=== PATIENT | male | born 1995 | race Caucasian/White ===

== ENCOUNTER 2023-09-03 08:06 | Emergency (ER) | payer OTHER, SELFPAY ==
[2023-09-03 08:11] VITALS: BP 123/69; PULSE 78; RESP 18; TEMP 36.1; O2SAT 98
--- NOTE | 2023-09-03 08:27 | ED.GENADULT ---
HPI - General Adult General Chief complaint: Dental/Oral Stated complaint: Toothache/Headache Time Seen by Provider: 09/03/23 08:10 Source: patient Mode of arrival: ambulatory Limitations: no limitations History of Present Illness HPI narrative: Patient presents for evaluation of left lower dental pain for last 3 weeks. Pain is constant, rated between 5-8/10 in severity. He describes the pain as throbbing. He has a headache which he attributes to his pain not being well controlled. No fever, chills, nausea or vomiting. He does not smoke. He has tried ibuprofen and tylenol without considerable improvement in his symptoms thereafter. Related Data Home Medications Medication Instructions Recorded Confirmed atenolol 50 mg tablet 50 mg PO DAILY 09/03/23 09/03/23 bupropion HCl 300 mg 24 hr tablet, 50 mg PO DAILY 09/03/23 09/03/23 extended release doxycycline hyclate 100 mg capsule 100 mg PO DAILY 09/03/23 09/03/23 omeprazole 40 mg capsule,delayed 40 mg PO DAILY 09/03/23 09/03/23 release ropinirole 1 mg tablet 1 mg PO DAILY 09/03/23 09/03/23 topiramate 50 mg tablet 50 mg PO DAILY 09/03/23 09/03/23 Allergies Allergy/AdvReac Type Severity Reaction Status Date / Time Sulfa (Sulfonamide Allergy Unknown Verified 09/03/23 08:23 Antibiotics) Review of Systems Review of Systems: CONSTITUTIONAL: Denies fever, chills, or sweats. EYES: Denies visual changes, redness, or discharge. ENT: Reports left lower dental pain. Denies rhinorrhea, congestion, sore throat, or otalgia. CARDIOVASCULAR: Denies chest pain, palpitations, or edema. RESPIRATORY: Denies cough or dyspnea. GASTROINTESTINAL: Denies abdominal pain, nausea, vomiting, or diarrhea. GENITOURINARY: Denies dysuria or hematuria. SKIN: Denies rash or itching. MUSCULOSKELETAL: Denies back pain, joint pain, or myalgia. NEUROLOGIC: Reports headache. Denies numbness, dizziness, or weakness. PSYCHIATRIC: Denies anxiety or depression. [facility], [facility] Past Medical History Medical History No pertinent past medical history Surgical History Surgical History No pertinent past surgical history Family History Family History Mother Family history non-contributory Social History Social History Smoking status: Never smoker Substance use: never Additional living arrangements comments: lives with girlfriend Gender identity (if verbalized by the patient): Male Sexual Orientation (if Verbalized by the Patient): Straight or Heterosexual Spiritual care concerns: No Exam Narrative: GENERAL: Well-appearing, well-nourished, and in no acute distress. HEAD: Normocephalic, atraumatic. EYES: PERRLA and EOMI. ENT: Nares clear, no rhinorrhea or epistaxis. Mucous membranes moist. Oropharynx without tonsillar hypertrophy exudate or other lesions. Tooth #18 is fractured. There is no visible or palpable abscess. Bilateral TMs pearly wolf nonbulging NECK: Supple. No adenopathy or masses. No carotid bruits or JVD CHEST: Clear to auscultation. No respiratory distress. No wheezes rales or rhonchi HEART: Regular rate and rhythm. No murmur heard. Normal peripheral pulses. ABDOMEN: Soft, nontender, nondistended, normal active bowel sounds. EXTREMITIES: Normal range of motion. No edema. SKIN: Warm, dry, no rash. NEURO: No focal deficits. Alert and oriented x3. PSYCH: Normal mood and affect. Course Course Emergency Course: This is a 28-year-old male who presented for evaluation of dental pain. He has a dental fracture on exam. Will discharge with penicillin and tramadol. Follow-up with dentist. Go to the ER for worsening symptoms. Patient in agreement with plan of care. Level of Care: Express Care Visit Vital Signs Vital signs:
== END 2023-09-03 08:32 | disposition home or self-care (01) ==
PROVIDERS: Emergency Provider Nurse Practitioner
DX: K08.89 Other specified disorders of teeth and supporting structures (principal); S02.5XXA Fracture of tooth (traumatic), initial encounter for closed fracture; X58.XXXA Exposure to other specified factors, initial encounter
CPT/HCPCS: 99203; G0463

== ENCOUNTER 2024-05-26 14:47 | Emergency (ER) | payer OTHER, SELFPAY ==
--- OUTSIDE RECORDS SUMMARY | 2024-05-26 14:49 | XMS_ITS | Encounter Summary ---
Author Organization [facility] Address [address] [place] [address] Phone Care Team Providers Care Service Trainer Name Role Phone Soco Benitez PAC Primary Care Pro vider Ashley Watson APRN, CONSULTANT Unavailable [phone] Encounter Details Date Type Department Care Team (Late st Contact Info) Description 07/17/2023 Lab Requisition [facility] [address] [place] [phone] Karen Bowers APRN, CONSULTANT [address] [place] [address] Encounter for pre-employment examination Social History Tobacco Use Types Packs/Day Years Used Date Smoking Tobacco: Never Smokeless Tobacco: Never Alcohol Use Standard Drinks/Week Comments Never 0 (1 standard drink = 0.6 oz pur e alcohol) Sex and Gender Information Value Date Recorded Sex Assigned at Not on file Legal Sex Male 3:15 PM CDT Gender Identity Not on file Sexual Orientation Not on file documented as of this encounter Plan of Treatment Upcoming Encounters Date Type Department Care Team (Latest Contact Info) Description 06/04/2024 4:30 PM CDT Telemedicine [facility] Medical [facility] - Pulmonology & Sleep Medicine [facility] [address] [place] [phone] Ashley Watson APRN, CONSULTANT #[address] [address] 07/24/2024 2:00 PM CDT [facility] [address] [facility] [address] [place] [address] Leeroy Gonzalez PSYD [place] Discharge Disposition: Discharged to home or Selfcare 09/03/2024 1:00 PM CDT [facility] [address] [facility] [place] [address] Leeroy Gonzalez PSYD [place] Discharge Disposition: Discharged to home or Selfcare 09/24/2024 2:00 PM CDT [facility] [address] [facility] [place] [address] Leeroy Gonzalez PSYD [place] Discharge Disposition: Discharged to home or Selfcare documented as of this encounter Procedures Procedure Name Priority Date/Time Associated Diagnosis Comments QUANTIFERON-TB GOLD PLUS Routine 07/17/2023 10:00 AM CDT Encounter for pre-employment examination MMRV PANEL Routine 07/17/2023 10:00 AM CDT Encounter for pre-employment examination MUMPS IGG Routine 07/17/2023 10:00 AM CDT Encounter for pre-employment examination HERPES ZOSTER (VARICELLA) IGG Routine 07/17/2023 10:00 AM CDT Encounter for pre-employment examination RUBEOLA (MEASLES) IGG Routine 07/17/2023 10:00 AM CDT Encounter for pre-employment examination RUBELLA IMMUNITY IGG Routine 07/17/2023 10:00 AM CDT Encounter for pre-employment examination HEPATITIS B SURFACE ANTIBODY (HBSAB) Routine 07/17/2023 10:00 AM CDT Encounter for pre-employment examination documented in this encounter Results * (ABNORMAL) HERPES ZOSTER (VARICELLA) IGG (07/17/2023 10:00 AM CDT) VARICELLA ZOSTER IGG <0.2(L) >=1.1 AI 07/17/2023 10:48 PM CDT [facility] Blood No Phlebotomy Charged / Unknown 07/17/2023 10:00 AM CDT 07/17/2023 12:18 PM CDT Narrative [facility] - 07/17/2023 10:48 PM CDT <= 0.8 Negative. No detectable VZV IgG antibody. 0.9 - 1.0 Equivocal >=1.1 Positive Antibody testing was performed by multiplex flow immunoassay on the BioPlex platform. Karen L Behrends REMOTE SENSING RESEARCH SCIENTIST, CONSULTANT IMMUNOLOGY ORDERABL ES Final Result Performing Organization Address [facility] Co de Phone Number [facility] [address] [place] [address], [place] * RUBEOLA (MEASLES) IGG (07/17/2023 10:00 AM CDT) MEASLES AB IGG 3.7 >=1.1 AI 07/17/2023 10:48 PM CDT [facility] Blood No Phlebotomy Charged / Unknown 07/17/2023 10:00 AM CDT 07/17/2023 12:18 PM CDT Narrative [facility] - 07/17/2023 10:48 PM CDT <= 0.8 Negative. No detectable Measles IgG antibody. 0.9 - 1.0 Equivocal >=1.1 Positive Antibody testing was performed by multiplex flow immunoassay on the BioPlex platform. us Karen L Behrends REMOTE SENSING RESEARCH SCIENTIST, CONSULTANT IMMUNOLOGY ORDERABL ES Final Result Performing Organization Address [facility] Co de Phone Number [facility] [address] [place] [address], [place] * (ABNORMAL) RUBELLA IMMUNITY IGG (07/17/2023 10:00 AM CDT) RUBELLA IMMUNITY Nonimmune( A) Immune, Invalid 07/17/2023 10:55 PM CDT [facility] Blood No Phlebotomy Charged / Unknown 07/17/2023 10:00 AM CDT 07/17/2023 12:18 PM CDT Narrative [facility] - 07/17/2023 10:55 PM CDT Antibody testing was performed by multiplex flow immunoassay on the BioPlex platform. us Karen L Behrends REMOTE SENSING RESEARCH SCIENTIST, CONSULTANT CHEMISTRY ORDERABLE S Final Result Performing Organization Address City/[facility]/ZIP Co de Phone Number [facility] [address] [place] [address], [place] * MUMPS IGG (07/17/2023 10:00 AM CDT) Pathologist [facility] Mumps Ab IgG 2.9 >=1.1 AI 07/17/2023 10:48 PM CDT [facility] Blood No Phlebotomy Charged / Unknown 07/17/2023 10:00 AM CDT 07/17/2023 12:18 PM CDT Narrative [facility] - 07/17/2023 10:48 PM CDT <= 0.8 Negative. No detectable Mumps IgG antibody. 0.9 - 1.0 Equivocal >=1.1 Positive Antibody testing was performed by multiplex flow immunoassay on the BioPlex platform. us Karen L Behrends REMOTE SENSING RESEARCH SCIENTIST, CONSULTANT IMMUNOLOGY ORDERABL ES Final Result [facility] [address] [place] [address], [place] * QUANTIFERON-TB GOLD PLUS (07/17/2023 10:00 AM CDT) NIL CONTROL 0.01 <8.01 IU/mL 07/19/2023 8:48 AM CDT [facility] TB ANTIGEN 1 0.00 <0.35 IU/mL 07/19/2023 8:48 AM CDT [facility] TB ANTIGEN 2 0.00 <0.35 IU/mL 07/19/2023 8:48 AM CDT [facility] MITOGEN CONTROL 9.99 >0.49 IU/mL 07/19/19 8:48 AM CDT [facility] INTEPRETATION TB NEGATIVE NEGATIVE, NEGATIVE (TB antigen response less than 25% of internal negative control value) 07/19/2023 8:48 AM CDT [facility] Comment:No immune response t o Mycobacterium tuberculosis antigens was noted. M. tuberculosis infection unlikely. Blood No Phlebotomy Charged / Unknown 07/17/2023 10:00 AM CDT 07/17/2023 12:18 PM CDT Narrative [facility] - 07/19/2023 8:48 AM CDT A POSITIVE QUANTIFERON-TB GOLD PLUS RESULT SHOULD NOT BE THE SOLE OR DEFINITIVE BASIS FOR DETERMINING INFECTION WITH M.TUBERCULOSIS. Diagnosing or excluding tuberculosis disease, and assessing the probability of LTBI, requires a combination of epidemiological, historical, medical and diagnostic findings (e.g., acid fast bacilli (AFB) smear and culture, chest xray) that should be taken into account when interpreting QFT-Plus results. Furthermore, the magnitude of the measured gamma interferon level cannot be correlated to stage or degree of infection, level of immune responsiveness, or likelihood for progression to active disease. The Nil control adjusts for background (e.g., elevated levels of circulating gamma interferon or presence of heterophile antibodies). The Mitogen control serves as an internal positive control and verifies each specimen tested can produce a gamma interferon response. Low mitogen may occur with insufficient lymphocytes, reduced lymphocyte activity due to improper specimen handling, filling/mixing of the mitogen tube, or inability of the patient's lymphocytes to generate gamma interferon. Infection with other Mycobacteria, including M. kansasii, M. szulgai, and M. marinum, may cause false positive results. A negative QuantiFERON-TB Gold Plus result does not preclude the possibility of M. tuberculosis infection or tuberculosis disease: false negative results can be due to incorrect blood sample collection/ improper handling of the specimen, stage of infection (e.g., specimen obtained prior to the development of cellular immune response), co-morbid conditions which affect immune function, or other individual immunological factors. The minimum number of lymphocytes required for a reliable test has not been established and may also be variable. Diagnostic testing for Mycobacterium tuberculosis using Interferon Gamma Release Assays should follow applicable published guidelines, including when testing in populations such as children, women, and HIV-infected or otherwise immunocompromised individuals. https://www.cdc.gov/tb/publications/guidelines/testing.htm Karen Bowers APRN, CNP IMMUNOLOGY ORDERABL ES Final Result Performing Organization Address [facility] Co de Phone Number [facility] [address] [place] [address], [place] * HEPATITIS B SURFACE ANTIBODY (HBSAB) (07/17/2023 10:00 AM CDT) HEPATITIS B SURFACE ANTIBODY <8.00 mIU/mL 07/17/2023 10:47 PM CDT [facility] Comment:Individual is consid ered not immune to HBV infection. Blood No Phlebotomy Charged / Unknown 07/17/2023 10:00 AM CDT 07/17/2023 12:18 PM CDT Karen Bowers APRN, CNP CHEMISTRY ORDERABLE S Final Result Performing Organization Address [facility] Co de Phone Number [facility] [address] [place] [address], [place] documented in this encounter Visit Diagnoses Diagnosis Encounter for pre-employment examination Health examination of defined subpopulation documented in this encounter Additional Health Concerns Infection Onset Date Last Indicated Resolved Time Respiratory Rule-Out 04/15/2024 04/15/2024 025 8:28 AM SALES VENDOR documented as of this encounter Care Teams Service Trainer Relationship Specialty Start Date End Date Soco Benitez PAC [address] [place] [address] PCP - General Physician Credit Or Loans Officer 01/10/23 Ashley Watson APRN, CNP [address] [address] Nurse Practitioner Advanced Practice Nurse 02/20/23 documented as of this encounter
--- OUTSIDE RECORDS SUMMARY | 2024-05-26 14:49 | XMS_ITS | Clinical Summary ---
Author Organization [facility] Address [address] [place] [address] Care Team Providers Care Refueling Rampman Name Role Phone Gladys Su APRN-GLASS FRAME FITTER Primary Care Provid er Yuan Young MD Unavailable [phone] [facility],non-owned Affiliates and Associated Physician Practices is amultiple site organization consisting of ambulatory clinics and hospital sitesin [place], [place], [place] and [place]. This disclosure is being madepursuant to the Care Everywhere program and may not contain all information available regarding this patient. Last updated 17.[facility] Allergies Active Allergy Reactions Criticality Noted Date Comments Sulfa Drugs 12/10/2014 Medications * Be aware that medications may not be up to date on this document. Alwaysverify current medications with the patient. doxycycline (VIBRAMYCIN) 100 MG capsule Take 100 mg by mouth every 12 hours Active amphetamine-dex troamphetamine (ADDERALL) 20 MG tablet Take 20 mg by mouth 2 times daily 04/01/2019 Active sertraline (ZOLOFT) 50 MG tablet Take 100 mg by mouth once daily 08/29/2018 Active atenolol (TENORMIN) 50 MG tablet Take 50 mg by mouth once daily 04/01/2019 Active omeprazole (PRILOSEC) 20 MG capsule Take 20 mg by mouth once daily 03/26/2019 Active rOPINIRole (REQUIP) 0.5 MG tablet Take 0.5 mg by mouth at bedtime Active diphenhydrAMINE (BENADRYL) 50 MG capsule Take 50 mg by mouth once daily as needed for Itching Active Active Problems Problem Noted Date Diagnosed Date 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 on 04/11/2019 Keep Ferritin below 100 Elevated ferritin 04/10/2019 Overview (05/09/2019): 04/03/2019 Ferritin = 555 Keep ferritin Around 100 Social History Tobacco Use Types Packs/Day Years Used Date Smoking Tobacco: Never Smokeless Tobacco: Never Alcohol Use Standard Drinks/Week Comments Not Currently 0 (1 standard drink = 0.6 oz pur e alcohol) Sex and Gender Information Value Date Recorded Sex Assigned at Not on file Legal Sex Male 11:52 AM CDT Gender Identity Not on file Sexual Orientation Not on file Last Filed Vital Signs Vital Sign Reading Time Taken Comments Blood Pressure 122/88 03/06/2020 2:30 PM PRODUCT MANUFACTURING PROFESSIONAL Pulse 88 03/06/2020 2:30 PM PRODUCT MANUFACTURING PROFESSIONAL Temperature 36.8 C (98.3 F) 03/06/2020 2:30 PM PRODUCT MANUFACTURING PROFESSIONAL Respiratory Rate 20 03/06/2020 2:30 PM PRODUCT MANUFACTURING PROFESSIONAL Oxygen Saturation 97% 03/06/2020 2:30 PM PRODUCT MANUFACTURING PROFESSIONAL Inhaled Oxygen Concentration - - Weight 149.3 kg (329 lb 3.2 oz) 03/06/2020 2:30 PM PRODUCT MANUFACTURING PROFESSIONAL Height 185.4 cm (6' 1 ) 03/06/2020 2:30 PM PRODUCT MANUFACTURING PROFESSIONAL Body Mass Index 43.43 03/06/2020 2:30 PM PRODUCT MANUFACTURING PROFESSIONAL Plan of Treatment Health Maintenance Due Date Last Done Comments HIV SCREENING 04/30/2011 HEPATITIS C SCREENING 04/25/2014 DTAP/TDAP/TD VACCINES (1 - Tdap) 04/30/2015 HEPATITIS B VACCINE (1 of 3 - 19+ 3-dose series) 04/30/2015 COVID-19 VACCINE ( - 2023-2 5 season) 2023 DEPRESSION SCREENING 02/14/2024 INFLUENZA VACCINE (Season Ended) 2024 ZOSTER VACCINE (1 of 2) 2046 HIB VACCINE Aged Out No longer eligi ble based on patient's age to complete this topic HPV VACCINE Aged Out No longer eligi ble based on patient's age to complete this topic MENINGOCOCCAL (Group B) VACC INE SHARED DECISION-MAKING Aged Out No longer eligibl e based on patient's age to complete this topic MENINGOCOCCAL GROUPS A/C/Y/W VACCINE Aged Out No longer eligible b ased on patient's age to complete this topic PNEUMOCOCCAL VACCINE Aged Out No long er eligible based on patient's age to complete this topic Insurance [employer] HE[employer] Care Teams Refueling Rampman Relationship Specialty Start Date End Date Gladys Su APRN-GLASS FRAME FITTER PCP - General Nurse Practitioner 04/11/19 Yuan Young MD Hematology 11/27/19
--- OUTSIDE RECORDS SUMMARY | 2024-05-26 14:49 | XMS_ITS | Encounter Summary ---
Author Organization [facility] Address [address] [place] [address] Phone Care Team Providers Care Research Technologist Name Role Phone Soco Benitez PAC Primary Care Pro vider Walter Ashley Jones APRN, DEDICATED DRIVER Unavailable Reason for Visit * Reason Comments Medication Refill Encounter Details Date Type Department Care Team (Late st Contact Info) Description 03/27/2023 Refill [facility] - Primary Care - [place] [address] [place] [address] Soco Benitez, PAC [address] [place] [address] Medication Refill Social History Tobacco Use Types Packs/Day Years [...] on file documented as of this encounter Miscellaneous Notes * Telephone Encounter - Nelia Valentine RN - 03/28/2023 10:42 AM CST Medication failed the protocol, provider to review and approve the medication order if appropriate. Requested Prescriptions Pending Prescriptions Disp Refills Topiramate 50 MG Tablet [Pharmacy Med Name: TOPIRAMATE 50MG TABLETS] 60 Tablet 2 Sig: TAKE 1 TABLET BY MOUTH TWICE DAILY Not Delegated - Anticonvulsants Excluding Benzodiazepines Protocol Failed - 03/27/2023 6:00 PM Failed - This refill cannot be delegated Passed - Visit with relevant provider in past 12 months or upcoming 90 days Recent Visits Date Type Provider Dept 02/21/23 Office Visit Soco Benitez, [facility] 01/10/23 Office Visit Soco Benitez, [facility] Showing recent visits within past 365 days and meeting all other requirements Future Appointments No visits were found meeting these conditions. Showing future appointments within next 90 days and meeting all other requirements UCTION WEIGHER documented in this encounter Plan of Treatment Upcoming Encounters Date Type Department Care Team (Latest Contact Info) Description 06/04/2024 4:30 PM CDT Telemedicine [facility] Medical [facility] - Pulmonology & Sleep Medicine [facility] [address] [place] [address] Ashley Watson APRN, DEDICATED DRIVER #[address] [address] 07/24/2024 2:00 PM CDT Outpatient Clinic Visit [facility] [address] [place] [address] Leeroy Gonzalez PSYD [place] Discharge Disposition: Discharged to home or Selfcare 09/03/2024 1:00 PM CDT Outpatient Clinic Visit [facility] [address] [place] [address] Leeroy Gonzalez PSYD [place] Discharge Disposition: Discharged to home or Selfcare 09/24/2024 2:00 PM CDT Outpatient Clinic Visit [facility] [address] [place] [address] Leeroy Gonzalez PSYD [place] Discharge Disposition: Discharged to home or Selfcare documented as of this encounter Visit Diagnoses Not on filedocumented in this encounter Additional Health Concerns Infection Onset Date Last Indicated Resolved Time Respiratory Rule-Out 04/15/2024 04/15/2024 025 8:28 AM PRODUCTION WEIGHER documented as of this encounter Care Teams Research Technologist Relationship Specialty Start Date End Date Soco Benitez, RICK [address] [place] [address] PCP - General Physician Maintenance Planning Clerk 01/10/23 Ashley Watson APRN, DEDICATED DRIVER #[address] [address] Nurse Practitioner Advanced Practice Nurse 02/20/23 documented as of this encounter
--- OUTSIDE RECORDS SUMMARY | 2024-05-26 14:49 | XMS_ITS | Encounter Summary ---
Author Organization [facility] Address [address] [place] [address] Care Team Providers Care Orchestra Teacher Name Role Phone Fernando Young MD Primary Care Provider [phone] Gladys Su APRN-TANK CAR RECONDITIONER Primary Care Provid er Yuan Young MD Unavailable [phone] Encounter Details Date Type Department Care Team (Late st Contact Info) Description 01/24/2018 [facility] Outpatient Visit [facility] - Pediatrics [address] [place] [address] Document, Scanned Social History Tobacco Use Types Packs/Day Years Used Date Smoking Tobacco: Never Smokeless Tobacco: Never Alcohol Use Standard Drinks/Week Comments No 0 (1 standard drink = 0.6 oz pur e alcohol) Sex and Gender Information Value Date Recorded Sex Assigned at Not on file Legal Sex Male 11:52 AM CDT Gender Identity Not on file Sexual Orientation Not on file documented as of this encounter Plan of Treatment Not on file documented as of this encounter Visit Diagnoses Not on filedocumented in this encounter Additional Health Concerns Infection Onset Date Last Indicated Resolved Time COVID-19 Under Investigation 11/13/2019 11/13/2019 11/14/2019 8:51 PM CDT COVID-19 Under Investigation 03/06/2020 03/06/2020 03/06/2020 2:59 PM SUPERVISOR AIRCRAFT MAINTENANCE documented as of this encounter Care Teams Orchestra Teacher Relationship Specialty Start Date End Date Fernando Young MD PCP - General Internal Medicine 03/16/15 04/10/19 Gladys Su APRN-TANK CAR RECONDITIONER PCP - General Nurse Practitioner 04/11/19 Yuan Young MD Hematology 11/27/19 documented as of this encounter
--- OUTSIDE RECORDS SUMMARY | 2024-05-26 14:49 | XMS_ITS | Patient Health Record ---
Author Organization [facility] Address [address] [place] [address] Care Team Providers Care Rice Drier Operator Name Role Phone Narciso Paige Primary Care Provider Reason For Referral No Information Problems Problem Type SNOMED Code ICD Code Onset Dates Problem Status W/U Status Risk Notes Problem Obstructive sleep apnea (14795998) OBSTRUCTIVE SLEEP APNEA (G47.33) Active confirmed Plan Of Treatment No Information Insurance Providers Payer Name Payer Address Payer Phone Subscriber Number Group Number Insured Name Patient Relationship to Insured Coverage Start Date Coverage End Date [facility] [employer]AY EXCHANGE [address] [place] [phone] [id number] DEBRA LLOYD Self - patient is the insured
--- OUTSIDE RECORDS SUMMARY | 2024-05-26 14:49 | XMS_ITS | Encounter Summary ---
Author Organization [facility] Address [address] [place] [address] Phone Care Team Providers Care Wet Machine Cutter Name Role Phone Soco Benitez [facility] Primary Care Pro vider Ashley Watson APRN, ELECTRICIAN SOUND Unavailable Reason for Visit * Reason Comments Medication Refill Encounter Details Date Type Department Care Team (Late st Contact Info) Description 05/21/2023 Refill [facility] - Primary Care - [place] [address] [place] [address] Soco Benitez, PAC [address] [place] [address] Medication Refill Social History Tobacco Use Types [...] Info) Description 06/04/2024 4:30 PM CDT Telemedicine [facility] - Pulmonology & Sleep Medicine [facility] [address]2 [place] [id number] Ashley Watson APRN, ELECTRICIAN SOUND #[address] [address] 07/24/2024 2:00 PM CDT Outpatient Clinic [facility] [address] [place] [address] Leeroy Gonzalez PSYD [place] Discharge Disposition: Discharged to home or Selfcare 09/03/2024 1:00 PM CDT Outpatient Clinic [facility] [address] [place] [address] Leeroy Gonzalez PSYD [place] Discharge Disposition: Discharged to home or Selfcare 09/24/2024 2:00 PM CDT Outpatient Clinic [facility] [address] [place] [address] Leeroy Gonzalez PSYD [place] Discharge Disposition: Discharged to home or Selfcare documented as of this encounter Visit Diagnoses Not on filedocumented in this encounter Additional Health Concerns Infection Onset Date Last Indicated Resolved Time Respiratory Rule-Out 04/15/2024 04/15/2024 025 8:28 AM ELECTRICAL PROSPECTING ENGINEER documented as of this encounter Care Teams Wet Machine Cutter Relationship Specialty Start Date End Date Soco Benitez PAC [address] [place] [address] PCP - General Physician C Web Developer 01/10/23 Ashley Watson APRN, ELECTRICIAN SOUND #2 [facility] [address] [place] [address] Nurse Practitioner Advanced Practice Nurse 02/20/23 documented as of this encounter
--- OUTSIDE RECORDS SUMMARY | 2024-05-26 14:49 | XMS_ITS | Clinical Summary ---
Author Organization [facility] Address [address] [place] [address] Care Team Providers Care Hospitality Host Name Role Phone Soco Benitez Primary Care Prov ider Allergies Active Allergy Reactions Criticality Noted Date Comments Sulfa Edema Medium 01/11/2024 Pt states when he was 5 years old he was given sulfa ear drops and it caused his ears to swell Medications atenoloL (TENORMIN) 50 mg tablet Take 1 tablet (50 mg total) by mouth daily Active acetaminophen (TYLENOL) 500 mg tablet Take 1 tablet (500 mg total) by mouth every 6 (six) hours as needed for pain 30 tablet 01/11/2024 Active naproxen (NAPROSYN) 500 mg tablet Take 1 tablet (500 mg total) by mouth 2 (two) times a day with meals 10 tablet 01/11/2024 Active chlorhexidine (PERIDEX) 0.12 % oral rinse Swish 15 mL in mouth for 30 seconds then spit out twice a day after brushing teeth, 473 mL 01/11/2024 Active lidocaine viscous (XYLOCAINE) 2 % solution Apply 15 mL to the mouth or throat every 3 (three) hours Gargle every 3 hours PRN for sore throat 100 mL 01/11/2024 Active Medical History Medical History Date Comments Restless leg syndrome Anxiety GERD (gastroesophageal reflux disease) Tachycardia Social History Tobacco Use Types Packs/Day Years Used Date Smoking Tobacco: Never Assessed Personal Safety Answer Date Recorded Have you ever been in or are you currently in a harmful physical or emotional relationship or is someone making you feel afraid or unsafe? Denies 01/11/2024 Sex and Gender Information Value Date Recorded Sex Assigned at Not on file Legal Sex Male 6:27 PM LUMBER DRIVER Gender Identity Not on file Sexual Orientation Not on file Obstetrics History Last Filed Vital Signs Vital Sign Reading Time Taken Comments Blood Pressure 138/106 01/11/2024 7:00 PM LUMBER DRIVER Pulse 58 01/11/2024 7:45 PM LUMBER DRIVER Temperature 36.6 C (97.9 F) 01/11/2024 6:31 PM LUMBER DRIVER Respiratory Rate 18 01/11/2024 7:45 PM LUMBER DRIVER Oxygen Saturation 100% 01/11/2024 7:45 PM LUMBER DRIVER Inhaled Oxygen Concentration - - Weight 158.8 kg (350 lb) 01/11/2024 6:31 PM LUMBER DRIVER Height 185.4 cm (6' 1 ) 01/11/2024 6:31 PM LUMBER DRIVER Body Mass Index 46.18 01/11/2024 6:31 PM LUMBER DRIVER Plan of Treatment Health Maintenance Due Date Last Done Comments Depression Screening 1996 Hepatitis C Screening 1996 Regular Well Visit/Exam 18-64 2014 Pneumococcal vaccine <65 (1 of 2 - PCV) 04/30/2015 Influenza Vaccine (Season Ended) 2024 12/16/2013, 03/18/2013, 11/07/2011, Additional history exists DTaP/Tdap/Td Vaccine (8 - Td or Tdap) 11/28/2032 11/28/2022, 05/30/2006, 08/07/2001, Additional history exists Hepatitis B Screening Completed 1996 , 1996, 1996 HPV Vaccines Completed 10/26/2010, 03/17, 01/14/2010 Varicella Vaccines Completed 10/03/2011, 07/11/1997 Insurance [facility] Care Teams Hospitality Host Relationship Specialty Start Date End Date Soco Benitez PA [address] [place] [address] PCP - General Neurosurgery 01/11/24
--- OUTSIDE RECORDS SUMMARY | 2024-05-26 14:49 | XMS_ITS | Encounter Summary ---
Author Organization [facility] Address [address] [place] [address] Phone Care Team Providers Care Marine Consultant Name Role Phone Soco Benitez PAC Primary Care Pro vider WalterAshley Karen SOLISN, GAS ATTENDANT Unavailable Reason for Visit * Reason Comments Medication Refill Encounter Details Date Type Department Care Team (Late st Contact Info) Description 08/04/2023 Refill [facility] - Primary Care - [place] [address] [place] [address] Soco Benitez, PAC [address] [place] [address] Medication Refill Social History Tobacco Use Types [...] encounter Miscellaneous Notes * Telephone Encounter - Nadia Limon RN - 08/04/2023 3:10 PM CDT Per nursing clinical judgement, provider to review and approve the medication(s) order(s) if appropriate. Requested Prescriptions Pending Prescriptions Disp Refills albuterol 108 (90 Base) MCG/ACT Aerosol Solution [Pharmacy Med Name: ALBUTEROL HFA INH (200 PUFFS) 8.5GM] 8.5 g 0 Sig: INHALE 2 PUFFS BY MOUTH EVERY 4 HOURS NEEDED FOR WHEEZING OR COUGH Short Acting Inhaled Beta-Agonists Protocol Passed - 08/04/2023 2:12 PM Passed - Visit with relevant provider in past 12 months or upcoming 90 days Recent Visits Date Type Provider Dept 02/21/23 Office Visit Soco Benitez[facility] 01/10/23 Office Visit Soco Benitez, RICK [facility] Showing recent visits within past 365 days and meeting all other requirements Future Appointments Date Type Provider Dept 08/22/23 Appointment Soco Benitez PAC [facility] Showing future appointments within next 90 days and meeting all other requirements documented in this encounter Plan of Treatment Upcoming Encounters Date Type Department Care Team (Latest Contact Info) Description 06/04/2024 4:30 PM CDT Telemedicine [facility] - Pulmonology & Sleep Medicine [facility] [address] [place] [address] Ashley Watson APRN, GAS ATTENDANT #[address] [address] 07/24/2024 2:00 PM CDT Outpatient Clinic Visit [facility] 1 [place] [address] Leeroy Gonzalez PSYD [place] Discharge Disposition: Discharged to home or Selfcare 09/03/2024 1:00 PM CDT Outpatient Clinic Visit [facility] 1 [place] [address] Leeroy Gonzalez PSYD [place] Discharge Disposition: Discharged to home or Selfcare 09/24/2024 2:00 PM CDT Outpatient Clinic Visit [facility] [address] [place] [address] Leeroy Gonzalez PSYD [place] Discharge Disposition: Discharged to home or Selfcare documented as of this encounter Visit Diagnoses Not on filedocumented in this encounter Additional Health Concerns Infection Onset Date Last Indicated Resolved Time Respiratory Rule-Out 04/15/2024 04/15/2024 025 8:28 AM MEDICAL LAB DIRECTOR documented as of this encounter Care Teams Marine Consultant Relationship Specialty Start Date End Date Soco Benitez PAC [address] [place] [address] PCP - General Physician Manager Sales And Marketing 01/10/23 Ashley Watson APRN, FAVIAN #[address] [facility] [address] [place] [address] Nurse Practitioner Advanced Practice Nurse 02/20/23 documented as of this encounter
--- OUTSIDE RECORDS SUMMARY | 2024-05-26 14:49 | XMS_ITS | Clinical Summary ---
Author Organization [facility] Address [address] [place] [address] Phone Care Team Providers Care Transaction Advisory Services Manager Name Role Phone Soco Benitezelle PAC Primary Care Pro vider AnnakymberlyAshley Karenvera APIGE, LADIES' LOCKER ROOM ATTENDANT Unavailable Allergies Active Allergy Reactions Criticality Noted Date Comments Sulfur Dioxide Unknown 05/05/2022 Medications buPROPion (WELLBUTRIN) 300 MG TABLET SR 24 HR XL tablet Take 1 Tablet by mouth daily. 90 Tablet 3 3 Active folic acid (FOLVITE) 1 MG Tablet Take 1 Tablet by mouth daily. 30 Tablet 2 3 Active Amphetamine-Dextr oamphetamine 25 MG CAPSULE SR 24 HRIndications:Att ention deficit hyperactivity disorder (ADHD), unspecified ADHD type TAKE 1 CAPSULE BY MOUTH EVERY DAY IN THE MORNING UPON AWAKENING 15 Capsule 4 Active Additional Information Patient not taking.Reported on 05/30/2023 atenolol (TENORMIN) 50 MG Tablet TAKE 1 TABLET BY MOUTH DAILY 90 Tablet 2 4 Active albuterol 108 (90 Base) MCG/ACT Aerosol Solution INHALE 2 PUFFS BY MOUTH EVERY 4 HOURS NEEDED FOR WHEEZING OR COUGH 8.5 g 4 Active Topiramate 50 MG Tablet TAKE 1 TABLET BY MOUTH TWICE DAILY 60 Tablet 2 4 Active rOPINIRole (REQUIP) 1 MG TabletIndications :RIKI (obstructive sleep apnea) Take 1mg in AM and 2MG in PM 90 Tablet 3 4 Active fluticasone (FLONASE) 50 MCG/ACT SuspensionIndicat ions:Environmenta l allergies 1 [place] by Nasal route every evening. Use in each nostril as directed. 16 g 3 4 Active azelastine (ASTELIN) 0.1 % SolutionIndicatio ns:Environmental allergies 2 Sprays by Nasal route every morning. Use in each nostril as directed 30 mL 3 4 Active mometasone furo-formoterol fum (Dulera) 100-5 MCG/ACT Aerosol take 2 Puffs by inhalation every 12 hours. 13 g 3 4 Active tiotropium (Spiriva Respimat) 2.5 MCG/ACT Aerosol Solution take 2 Puffs by inhalation daily. 4 g 3 4 Active pantoprazole (PROTONIX) 20 MG Tablet Delayed Response Take 1 Tablet by mouth daily. 90 Tablet 3 4 Active Active Problems Problem Noted Date Diagnosed Date Environmental allergies 11/24/2023 Elevated LFTs 02/21/2023 RIKI (obstructive sleep apnea) 02/20/2023 Asthma without status asthmaticus 02/20/2023 ADHD 01/10/2023 Hypertension 01/10/2023 Tachycardia 01/10/2023 Restless leg syndrome 01/10/2023 Bipolar 1 disorder 01/10/2023 Gastroesophageal reflux disease without esophagi tis 01/10/2023 Neuropathy 01/10/2023 Hereditary hemochromatosis Overview (02/21/2023): HEME following Hepatic steatosis Resolved Problems Problem Noted Date Diagnosed Date Resolved Date Loud snoring 02/20/2023 06/23/2023 Encounters Date Type Department Care Team Description 04/10/2024 Documentation Only [facility] - Internal Medicine - [place] [address] [place] [address] Soco Benitez, RICK from Last 3 Months Immunizations Immunization Administration Dates Next Due TDAP Vaccine 11/28/2022 Family History Medical History Relation Name Comments Alcohol Abuse Father Anxiety disorder Father Diabetes Father Drug Abuse Father Heart Attack Father High Cholesterol Father Hypertension Father Alcohol Abuse Mother Bipolar Disorder Mother Drug Abuse Mother Relation Name Status Comments Father Mother Alive Social History Tobacco Use Types Packs/Day Years Used Date Smoking Tobacco: Never Smokeless Tobacco: Never Tobacco Cessation:Counseling Given: Not Answered Alcohol Use Standard Drinks/Week Comments Never 0 (1 standard drink = 0.6 oz pur e alcohol) Sex and Gender Information Value Date Recorded Sex Assigned at Not on file Legal Sex Male 3:15 PM CDT Gender Identity Not on file Sexual Orientation Not on file Last Filed Vital Signs Vital Sign Reading Time Taken Comments Blood Pressure 120/70 06/23/2023 11:40 AM CDT Pulse 88 06/23/2023 11:40 AM CDT Temperature 36.4 C (97.5 F) 06/23/2023 11:40 AM CDT Respiratory Rate 16 06/23/2023 11:40 AM CDT Oxygen Saturation 96% 06/23/2023 11:40 AM CDT Inhaled Oxygen Concentration - - Weight 160 kg (352 lb 12.8 oz) 06/23/2023 11:40 AM CDT Height 182.9 cm (6') 06/23/2023 11:40 AM CDT Body Mass Index 47.85 06/23/2023 11:40 AM CDT Plan of Treatment Upcoming Encounters Date Type Department Care Team (Latest Contact Info) Description 06/04/2024 4:30 PM CDT Telemedicine [facility] - Pulmonology & Sleep Medicine [facility] [address] [place] [address] Ashley Watson APRN, LADIES' LOCKER ROOM ATTENDANT #[address] [address] 07/24/2024 2:00 PM CDT [facility] 1 [place] [address] Leeroy Gonzalez PSYD [place] Discharge Disposition: Discharged to home or Selfcare 09/03/2024 1:00 PM CDT [facility] 1 [place] [address] Leeroy Gonzalez PSYD [place] Discharge Disposition: Discharged to home or Selfcare 09/24/2024 2:00 PM CDT Outpatient Clinic Visit [facility] [address] [place] [address] Leeroy Gonzalez PSYD [place] Discharge Disposition: Discharged to home or Selfcare Health Maintenance Due Date Last Done Comments Hepatitis C Virus (HCV) Screening 1996 Hepatitis B Immunization (1 of 3 - 19+ 3-dose series) 04/30/2015 Pneumococcal Immunization Combined (1 of 2 - PCV) 04/30/2015 SARS-COV-2 Immunization ( - season) 2023 Influenza Immunization (Seas on Ended) 2024 Td Immunization Every 10 Yea rs (Adults With 1 Tdap) 11/28/2032 11/28/2022 Respiratory Syncytial Virus (RSV) Immunization (Adult) (1 - 1-dose 75+ series) 04/30/2071 DTaP/Tdap/Td Immunization Discontinued 11/28/2022 TdaP Immunization Discontinued 11/28/2022 Meningococcal Immunization (ACWY) Aged Out No longer eligible based on patient's age to complete this topic Rotavirus Immunization Aged Out No lo nger eligible based on patient's age to complete this topic Procedures Procedure Name Priority Date/Time Associated Diagnosis Comments SARS-COV-2 BY MOLECULAR 05/15/19 12:00 AM CDT INFLUENZA TEST 05/14/2024 12:00 AM CDT THYROID STIMULATING HORMONE (TSH) 04/15/2024 12:00 AM INTERNET SALESPERSON CMP (COMPREHENSIVE METABOLIC PANEL) 04/15/2024 12:00 AM INTERNET SALESPERSON COMPLETE BLOOD COUNT (CBC) WITH DIFF 04/15/2024 12:00 AM INTERNET SALESPERSON RESPIRATORY SYNCYTIAL VIRUS BY MOLECULAR 04/15/2024 12:00 AM INTERNET SALESPERSON INFLUENZA TEST 04/15/2024 12:00 AM INTERNET SALESPERSON SARS-COV-2 BY MOLECULAR 04/16/19 12:00 AM INTERNET SALESPERSON from Last 3 Months Results * INFLUENZA TEST (05/14/2024 12:00 AM CDT) Only the most recent of2 resultswithin the time period is included. 05/14/2024 us Provider Scan MICROBIOLOGY - GENERAL ORDERABLE S Final Result Performing Organization Address City/State/[facility] Co de Phone Number SCAN * SARS-COV-2 BY MOLECULAR (05/14/2024 12:00 AM CDT) Only the most recent of2 resultswithin the time period is included. 05/14/2024 us Provider Scan MICROBIOLOGY - GENERAL ORDERABLE S Final Result Performing Organization Address City/[facility] de Phone Number SCAN * RESPIRATORY SYNCYTIAL VIRUS BY MOLECULAR (04/15/2024 12:00 AM INTERNET SALESPERSON) 04/15/2024 us Provider Scan MICROBIOLOGY - GENERAL ORDERABLE S Final Result Performing Organization Address [facility] de Phone Number SCAN * THYROID STIMULATING HORMONE (TSH) (04/15/2024 12:00 AM INTERNET SALESPERSON) 04/15/2024 us Provider Scan CHEMISTRY ORDERABLES Final Resul t Performing Organization Address [facility] de Phone Number SCAN * CMP (COMPREHENSIVE METABOLIC PANEL) (04/15/2024 12:00 AM INTERNET SALESPERSON) 04/15/2024 us Provider Scan CHEMISTRY ORDERABLES Final Resul t Performing Organization Address [facility] Co de Phone Number SCAN * COMPLETE BLOOD COUNT (CBC) WITH DIFF (04/15/2024 12:00 AM INTERNET SALESPERSON) 04/15/2024 us Provider Scan HEMATOLOGY ORDERABLES Final Resu lt Performing Organization Address City/[facility] Co de Phone Number SCAN from Last 3 Months Insurance MEDICAID [employer] * Guarantor: [facility] [employer] Account Type Relation to Patient Date of Phone Billing Address Institutional Other [address] [place] [address] Care Teams Transaction Advisory Services Manager Relationship Specialty Start Date End Date Soco Benitez PAC [address] [place] [address] PCP - General Physician Advertising Associate 01/10/23 Ashley Watson APRN, LADIES' LOCKER ROOM ATTENDANT #[address] [facility] [address] [place] [address] Nurse Practitioner Advanced Practice Nurse 02/20/23
--- OUTSIDE RECORDS SUMMARY | 2024-05-26 14:49 | XMS_ITS | Referral Summary ---
Author Organization [facility] Address [address] [place] [address] Care Team Providers Care Material Requirements Planning Manager Name Role Phone Soco Benitez Primary Care [...] for sore throat 100 mL 01/11/2024 Active Social History Tobacco Use Types Packs/Day Years Used Date Smoking Tobacco: Never Assessed Personal Safety Answer Date Recorded Have you ever been in or are you currently in a harmful physical or emotional relationship or is someone making you feel afraid or unsafe? Denies 01/11/2024 Sex and Gender Information Value Date Recorded Sex Assigned at Not on file Legal Sex Male 6:27 PM TIME MOTION ANALYST Gender Identity Not on file Sexual Orientation Not on file Last Filed Vital Signs Vital Sign Reading Time Taken Comments Blood Pressure 138/106 01/11/2024 7:00 PM TIME MOTION ANALYST Pulse 58 01/11/2024 7:45 PM TIME MOTION ANALYST Temperature 36.6 C (97.9 F) 01/11/2024 6:31 PM TIME MOTION ANALYST Respiratory Rate 18 01/11/2024 7:45 PM TIME MOTION ANALYST Oxygen Saturation 100% 01/11/2024 7:45 PM TIME MOTION ANALYST Inhaled Oxygen Concentration - - Weight 158.8 kg (350 lb) 01/11/2024 6:31 PM TIME MOTION ANALYST Height 185.4 cm (6' 1 ) 01/11/2024 6:31 PM TIME MOTION ANALYST Body Mass Index 46.18 01/11/2024 6:31 PM TIME MOTION ANALYST Plan of Treatment Not on file Insurance [facility] Care Teams Material Requirements Planning Manager Relationship Specialty Start Date End Date Soco Benitez PA [address] [place] [address] PCP - General Neurosurgery 01/11/24
--- OUTSIDE RECORDS SUMMARY | 2024-05-26 14:49 | XMS_ITS | Encounter Summary ---
Author Organization [facility] Address [address] [place] [address] Phone Care Team Providers Care Potato Grader Name Role Phone Soco Benitez PAC Primary Care Pro vider Walter Ashley Karen PAIGE, CONDITIONING YARD SUPERVISOR Unavailable Reason for Visit * Reason Comments Medication Refill Encounter Details Date Type Department Care Team (Late st Contact Info) Description 05/12/2023 Refill [facility] - Primary Care - [place] [address] [place] [address] Soco Benitez, PAC [address] [place] [address] Medication Refill Social History Tobacco Use Types [...] Telephone Encounter - Nelia Valentine RN - 05/12/2023 3:11 PM CDT Medication(s) refilled and signed per [facility] Chronic Medication Refill Standing Order for Pediatricand Adult Patients. Requested Prescriptions Pending Prescriptions Disp Refills albuterol 108 (90 Base) MCG/ACT Aerosol Solution [Pharmacy Med Name: ALBUTEROL HFA INH (200 PUFFS) 8.5GM] 8.5 g 0 Sig: INHALE 2 PUFFS BY MOUTH EVERY 4 HOURS NEEDED FOR WHEEZING OR COUGH Short Acting Inhaled Beta-Agonists Protocol Passed - 05/12/2023 3:00 PM Passed - Visit with relevant provider in past 12 months or upcoming 90 days Recent Visits Date Type Provider Dept 02/21/23 Office Visit Soco Benitez, PAC [facility] 01/10/23 Office Visit Soco Benitez, PAC [facility] Showing recent visits within past 365 days and meeting all other requirements Future Appointments No visits were found meeting these conditions. Showing future appointments within next 90 days and meeting all other requirements documented in this encounter Plan of Treatment Upcoming Encounters Date Type Department Care Team (Latest Contact Info) Description 06/04/2024 4:30 PM CDT Telemedicine [facility] - Pulmonology & Sleep Medicine [facility] #2 [place] [address] Ashley Watson APRN, CONDITIONING YARD SUPERVISOR #[address] [address] 07/24/2024 2:00 PM CDT Outpatient Clinic Visit [facility] [address] [place] [address] Leeroy Gonzalez PSYD [place] Discharge Disposition: Discharged to home or Selfcare 09/03/2024 1:00 PM CDT Outpatient Clinic Visit [facility] [address] [place] [address] Leeroy Gonzalez PSYD [place] Discharge Disposition: Discharged to home or Selfcare 09/24/2024 2:00 PM CDT Outpatient Clinic Visit [facility] [address] [place] [address] Leeroy Gonzalez, [place] Discharge Disposition: Discharged to home or Selfcare documented as of this encounter Visit Diagnoses Not on filedocumented in this encounter Additional Health Concerns Infection Onset Date Last Indicated Resolved Time Respiratory Rule-Out 04/15/2024 04/15/2024 025 8:28 AM ENTRY LEVEL RECEPTIONIST documented as of this encounter Care Teams Potato Grader Relationship Specialty Start Date End Date Soco Benitez PAC [address] [place] [address] PCP - General Physician Applications Support Analyst 01/10/23 Ashley Watson APRN, CONDITIONING YARD SUPERVISOR #[address] [facility] [address] [place] [address] Nurse Practitioner Advanced Practice Nurse 02/20/23 documented as of this encounter
--- OUTSIDE RECORDS SUMMARY | 2024-05-26 14:49 | XMS_ITS | Encounter Summary ---
Author Organization [facility] Address [address] [place] [address] Phone Care Team Providers Care Fiberline Supervisor Name Role Phone Soco Benitez [facility] Primary Care Pro vider Ashley Watson APRN, PLATE HANGER Unavailable Reason for Visit * Reason Comments Medication Refill Encounter Details Date Type Department Care Team (Late st Contact Info) Description 06/12/2023 Refill [facility] - Primary Care - [place] [address] [place] [address] Soco Benitez, PAC [address] [place] [address] Medication Refill Social History Tobacco Use Types [...] Info) Description 06/04/2024 4:30 PM CDT Telemedicine [facility] - Pulmonology & Sleep Medicine [facility] #2 [place] [phone] Ashley Watson APRN, PLATE HANGER #[address] [address] 07/24/2024 2:00 PM CDT [facility] [address] [place] [address] Leeroy Gonzalez PSYD [place] Discharge Disposition: Discharged to home or Selfcare 09/03/2024 1:00 PM CDT [facility] [address] [place] [address] Leeroy Gonzalez PSYD [place] Discharge Disposition: Discharged to home or Selfcare 09/24/2024 2:00 PM CDT [facility] [address] [place] [address] Leeroy Gonzalez PSYD [place] Discharge Disposition: Discharged to home or Selfcare documented as of this encounter Visit Diagnoses Not on filedocumented in this encounter Additional Health Concerns Infection Onset Date Last Indicated Resolved Time Respiratory Rule-Out 04/15/2024 04/15/2024 025 8:28 AM CLINICAL DIETITIAN documented as of this encounter Care Teams Fiberline Supervisor Relationship Specialty Start Date End Date Soco Benitez PAC [address] [place] [address] PCP - General Physician Content Designer 01/10/23 Ashley Watson APRN, PLATE HANGER #2 [facility] [address] [place] [address] Nurse Practitioner Advanced Practice Nurse 02/20/23 documented as of this encounter
[2024-05-26 14:51] VITALS: BP 121/63; PULSE 70; RESP 14; TEMP 36.6; O2SAT 96
--- NOTE | 2024-05-26 15:22 | ED.DENTAL ---
HPI - Dental/Oral General Chief complaint: Dental/Oral Stated complaint: Toothache Source: patient Mode of arrival: ambulatory History of Present Illness HPI Narrative: Patient presents for evaluation bilateral lower dental pain. Symptom onset four days ago. He has known dental fractures in the area. He states pain is constant, throbbing, 4/10. He has taken 400mg ibuprofen for his symptoms. No fever, chills, nausea, or vomiting. He does not smoke. Related Data Home Medications ?Medication ?Instructions ?Recorded ?Confirmed ?Last Taken ?Type atenolol 50 mg tablet 50 mg PO DAILY 09/03/23 09/03/23 Unknown History bupropion HCl 300 mg 24 hr tablet, 50 mg PO DAILY 09/03/23 09/03/23 Unknown History extended release bupropion HCl 150 mg 24 hr tablet, mg PO 05/26/24 Unknown History extended release fluticasone propionate 50 intranasal 05/26/24 Unknown History mcg/actuation nasal spray,suspension tiotropium bromide 2.5 inhalation 05/26/24 Unknown History mcg/actuation mist for inhalation (Spiriva Respimat) Allergies Allergy/AdvReac Type Severity Reaction Status Date / Time Sulfa (Sulfonamide Allergy Unknown Verified 05/26/24 14:52 Antibiotics) Review of Systems Review of Systems: CONSTITUTIONAL: Denies fever, chills, or sweats. EYES: Denies visual changes, redness, or discharge. ENT: Reports bilateral lower dental pain. Denies rhinorrhea, congestion, sore throat, or otalgia. CARDIOVASCULAR: Denies chest pain, palpitations, or edema. RESPIRATORY: Denies cough or dyspnea. GASTROINTESTINAL: Denies abdominal pain, nausea, vomiting, or diarrhea. GENITOURINARY: Denies dysuria or hematuria. SKIN: Denies rash or itching. MUSCULOSKELETAL: Denies back pain, joint pain, or myalgia. NEUROLOGIC: Denies headache, numbness, dizziness, or weakness. PSYCHIATRIC: Denies anxiety or depression. [facility] Past Medical History Medical History No pertinent past medical history Surgical History Surgical History No pertinent past surgical history Family History Family History Mother Family history non-contributory Social History Social History Smoking status: Never smoker Substance use: never Additional living arrangements comments: lives with girlfriend Gender identity (if verbalized by the patient): Male Sexual Orientation (if Verbalized by the Patient): Straight or Heterosexual Spiritual care concerns: No Exam Narrative: GENERAL: Well-appearing, well-nourished, and in no acute distress. HEAD: Normocephalic, atraumatic. EYES: PERRLA and EOMI. ENT: Nares clear, no rhinorrhea or epistaxis. Mucous membranes moist. Oropharynx without tonsillar hypertrophy exudate or other lesions. Tooth #17 and tooth #32 are both fractured. There is no visible or palpable abscess. Bilateral TMs pearly wolf nonbulging NECK: Supple. No adenopathy or masses. No carotid bruits or JVD CHEST: Clear to auscultation. No respiratory distress. No wheezes rales or rhonchi HEART: Regular rate and rhythm. No murmur heard. Normal peripheral pulses. ABDOMEN: Soft, nontender, nondistended, normal active bowel sounds. EXTREMITIES: Normal range of motion. No edema. SKIN: Warm, dry, no rash. NEURO: No focal deficits. Alert and oriented x3. PSYCH: Normal mood and affect. Course Course Emergency Course: This is a 29 year old male who presented for evaluation of bilateral lower dental pain. He has dental fractures of which he is already aware. There is no visible or palpable abscess. Will dc with PCN. He was advised he can increase his ibuprofen from 400mg to 800 mg po TID. Follow up with dentist and PCP. Go to the emergency department for worsening symptoms. Patient in agreement with plan of care Level of Care: Express Care Visit Vital Signs Vital signs: Vital Signs Temperature 36.6 C 05/26/24 14:51 Pulse Rate 70 05/26/24 14:51 Respiratory Rate 14 05/26/24 14:51 Blood Pressure 121/63 05/26/24 14:51 Pulse Oximetry 96 05/26/24 14:51 Oxygen Delivery Room Air 05/26/24 14:51 Temperature 36.6 C 05/26/24 14:51 Pulse Rate 70 05/26/24 14:51 Respiratory Rate 14 05/26/24 14:51 Blood Pressure 121/63 05/26/24 14:51 Pulse Oximetry 96 05/26/24 14:51 Oxygen Delivery Room Air 05/26/24 14:51 Discharge Plan Discharge Clinical Impression: Fracture of tooth Patient Disposition: Home Condition: Stable Instructions: Antibiotic Form, Toothache (ED) Patient Language: Malagasy Prescriptions: New penicillin V potassium 500 mg tablet 500 mg PO Q6H 10 Days Qty: 40 0RF No Action fluticasone propionate 50 mcg/actuation spray,suspension INTRANASAL bupropion HCl 150 mg tablet extended release 24 hr PO Spiriva Respimat 2.5 mcg/actuation mist INHALATION atenolol 50 mg tablet 50 mg PO DAILY bupropion HCl 300 mg tablet extended release 24 hr 50 mg PO DAILY Follow-up/Referrals: Emmanuel,ISABEL Wan [Primary Care Provider] - Stand Alone Forms: Work/School Release IP Time of Disposition: 15:20
== END 2024-05-26 15:22 | disposition home or self-care (01) ==
PROVIDERS: Emergency Provider Nurse Practitioner; PCP Physician Assistant
DX: S02.5XXA Fracture of tooth (traumatic), initial encounter for closed fracture (principal); X58.XXXA Exposure to other specified factors, initial encounter
CPT/HCPCS: 99213; G0463

== ENCOUNTER 2024-08-16 15:35 | Emergency (ER) | payer MEDICAID, SELFPAY ==
--- NOTE | ~2024-08-16 | XR_ITS ---
XR hand RT min 3V Ordering provider: Marvin Baca APRN History: . SMASHING INJURY, 4TH MCP JOINT PAIN . Comparison: None. FINDINGS: BONES: No acute fracture or dislocation. JOINT SPACES: Normal. SOFT TISSUES: Normal. IMPRESSION: No acute osseous abnormality right hand. Reviewed, dictated and finalized at location A.
--- OUTSIDE RECORDS SUMMARY | 2024-08-16 15:38 | XMS_ITS | Patient Health Record ---
Author Organization [facility] Address [address] [place] [address] Care Team Providers Care Molder Meat Name Role Phone Narciso Paige Primary Care Provider Reason For Referral No Information Problems Problem Type SNOMED Code ICD Code Onset Dates Problem Status W/U Status Risk Notes Problem OBSTRUCTIVE SLEEP APNEA (G47.33) Active confirmed Plan Of Treatment No Information Insurance Providers Payer Name Payer Address Payer Phone Subscriber Number Group Number Insured Name Patient Relationship to Insured Coverage Start Date Coverage End Date [facility]WAY EXCHANGE [address] [place] [address] [id number] DEBRA LLOYD Self - patient is the insured
--- OUTSIDE RECORDS SUMMARY | 2024-08-16 15:38 | XMS_ITS | Encounter Summary ---
Author Organization [facility] Address [address] [place] [address] Phone Care Team Providers Care Scientific Informatics Leader Name Role Phone Soco Benitez PAC Primary Care Pro vider Walter Ashley Jones APRN, RECORDING STUDIO INTERN Unavailable [phone] Reason for Visit * Reason Comments Medication Refill Encounter Details Date Type Department Care Team (Late st Contact Info) Description 03/27/2023 Refill [facility] - Primary Care - [place] [address] [place] [address] Soco Benitez, PAC [address] [place] [address] Medication Refill Social History Tobacco Use Types [...] Dept 02/21/23 Office Visit Soco Benitez, PAC [facility] 01/10/23 Office Visit Soco Benitez, [facility] Showing recent visits within past 365 days and meeting all other requirements Future Appointments No visits were found meeting these conditions. Showing future appointments within next 90 days and meeting all other requirements BOAT OPERATOR documented in this encounter Plan of Treatment Upcoming Encounters Date Type Department Care Team (Latest Contact Info) Description 09/03/2024 1:00 PM CDT Outpatient Clinic Visit [facility] 1 [place] [address] Leeroy Gonzalez PSYD [place] Discharge Disposition: Discharged to home or Selfcare 09/24/2024 2:00 PM CDT Outpatient Clinic Visit [facility] 1 [place] [address] Leeroy Gonzalez PSYD [place] Discharge Disposition: Discharged to home or Selfcare 11/22/2024 1:00 PM CDT Office Visit [facility] - Pulmonology & Sleep Medicine [facility] #[address] [place] [address] Ashley Watson APRN, RECORDING STUDIO INTERN #[address] [address] documented as of this encounter Visit Diagnoses Not on filedocumented in this encounter Additional Health Concerns Infection Onset Date Last Indicated Resolved Time Respiratory Rule-Out 04/15/2024 04/15/2024 025 8:28 AM CREW BOAT OPERATOR documented as of this encounter Care Teams Scientific Informatics Leader Relationship Specialty Start Date End Date Soco Benitez, [facility] [address] [place] [address] PCP - General Physician Home Health Outreach Coordinator 01/10/23 Ashley Watson APRN, RECORDING STUDIO INTERN #[address] [address] Nurse Practitioner Advanced Practice Nurse 02/20/23 documented as of this encounter
--- OUTSIDE RECORDS SUMMARY | 2024-08-16 15:38 | XMS_ITS | Referral Summary ---
Author Organization [facility] Address [address] [place] [address] Care Team Providers Care Surgical Instrument Maker Name Role Phone Soco Benitez Primary Care [...] on file Legal Sex Male 6:27 PM RUSSET REPAIRER Gender Identity Not on file Sexual Orientation Not on file Last Filed Vital Signs Vital Sign Reading Time Taken Comments Blood Pressure 138/106 01/11/2024 7:00 PM RUSSET REPAIRER Pulse 58 01/11/2024 7:45 PM RUSSET REPAIRER Temperature 36.6 C (97.9 F) 01/11/2024 6:31 PM RUSSET REPAIRER Respiratory Rate 18 01/11/2024 7:45 PM RUSSET REPAIRER Oxygen Saturation 100% 01/11/2024 7:45 PM RUSSET REPAIRER Inhaled Oxygen Concentration - - Weight 158.8 kg (350 lb) 01/11/2024 6:31 PM RUSSET REPAIRER Height 185.4 cm (6' 1) 01/11/2024 6:31 PM RUSSET REPAIRER Body Mass Index 46.18 01/11/2024 6:31 PM RUSSET REPAIRER Plan of Treatment Not on file Insurance [facility] Care Teams Surgical Instrument Maker Relationship Specialty Start Date End Date Soco Benitez PA [address] [place] [address] PCP - General Neurosurgery 01/11/24
--- OUTSIDE RECORDS SUMMARY | 2024-08-16 15:38 | XMS_ITS | Encounter Summary ---
Author Organization [facility] Address [address] [place] [address] Phone Care Team Providers Care Liquor Stores And Agencies Supervisor Name Role Phone Soco Benitez PAC Primary Care Pro vider WalterAshley Karen SOLISN, APPLIED BIOLOGY PROFESSOR Unavailable Reason for Visit * Reason Comments Medication Refill Encounter Details Date Type Department Care Team (Late st Contact Info) Description 08/15/2024 Refill [facility] - Primary Care - [place] [address] [place] [address] Soco Benitez, PAC [address] [place] [address] Medication Refill Social History Tobacco Use Types [...] 09/03/2024 1:00 PM CDT Outpatient Clinic Visit [facility] [address] [place] [phone] Leeroy Gonzalez PSYD [place] Discharge Disposition: Discharged to home or Selfcare 09/24/2024 2:00 PM CDT Outpatient Clinic Visit [facility] 1 [place] [address] Leeroy [place] PSYD [place] Discharge Disposition: Discharged to home or Selfcare 11/22/2024 1:00 PM CDT Office Visit [facility] - Pulmonology & Sleep Medicine [facility] #2 [place] [address] Ashley Watson APRN, APPLIED BIOLOGY PROFESSOR #2 [facility] [address] [place] [address] documented as of this encounter Goals Goal Patient Goal Type Associated Problems Recent Progress Patient-Stated? Author Psychological assessment Behavioral Health No Leeroy Gonzalez PSYD Note: Participate fully in psychological assessment within the next 60 days to determine presence of ADHD. documented as of this encounter Visit Diagnoses Not on filedocumented in this encounter Care Teams Liquor Stores And Agencies Supervisor Relationship Specialty Start Date End Date Soco Benitez PAC [address] [place] [address] PCP - General Physician Dish Up Person 01/10/23 Ashley Watson APRN, APPLIED BIOLOGY PROFESSOR #2 [facility] [address] [place] [address] Nurse Practitioner Advanced Practice Nurse 02/20/23 documented as of this encounter
--- OUTSIDE RECORDS SUMMARY | 2024-08-16 15:38 | XMS_ITS | Encounter Summary ---
Author Organization [facility] Address [address] [place] [address] Phone Care Team Providers Care Developmental Mathematics Instructor Name Role Phone Soco Benitez PAC Primary Care Pro vider Walter Ashley Karen PAIGE, ART CLASS MODEL Unavailable Reason for Visit * Reason Comments Medication Refill Encounter Details Date Type Department Care Team (Late st Contact Info) Description 05/12/2023 Refill [facility] - Primary Care - [place] [address] [place] [address] Soco Benitez, PAC [address] [place] [address] Medication Refill Social History Tobacco Use Types [...] Dept 02/21/23 Office Visit Soco Benitez, PAC [facility] 01/10/23 Office Visit Soco Benitez, PAC [facility] Showing recent visits within past 365 days and meeting all other requirements Future Appointments No visits were found meeting these conditions. Showing future appointments within next 90 days and meeting all other requirements documented in this encounter Plan of Treatment Upcoming Encounters Date Type Department Care Team (Latest Contact Info) Description 09/03/2024 1:00 PM CDT Outpatient Clinic Visit [facility] 1 [place] [address] Leer[place] PSYD [place] Discharge Disposition: Discharged to home or Selfcare 09/24/2024 2:00 PM CDT Outpatient Clinic Visit [facility] 1 [place] [address] Leer[place] PSYD [place] Discharge Disposition: Discharged to home or Selfcare 11/22/2024 1:00 PM CDT Office Visit [facility] - Pulmonology & Sleep Medicine [facility] #2 [place] [address] Ashley Watson APRN, ART CLASS MODEL #[address] [address] documented as of this encounter Visit Diagnoses Not on filedocumented in this encounter Additional Health Concerns Infection Onset Date Last Indicated Resolved Time Respiratory Rule-Out 04/15/2024 04/15/2024 025 8:28 AM JEWEL BEARING POLISHER documented as of this encounter Care Teams Developmental Mathematics Instructor Relationship Specialty Start Date End Date Soco Benitez PAC [address] [place] [address] PCP - General Physician Compression Molding Machine Tender 01/10/23 Ashley Watson APRN, ART CLASS MODEL #[address] [address] Nurse Practitioner Advanced Practice Nurse 02/20/23 documented as of this encounter
--- OUTSIDE RECORDS SUMMARY | 2024-08-16 15:38 | XMS_ITS ---
Author Organization Unknown Plan of Treatment Description Planned Activity Planned Timing [facility] is a provider organization who partners directly with Health Plans and provides integrated primary care, behavioral health, and psychiatric social worker for an attributed population Letter encounter to patientTelephone encounter Aug 08, 2024Jul 2024 Patient Care team information Name Category Status Period Participants - - Proposed period not known -
--- OUTSIDE RECORDS SUMMARY | 2024-08-16 15:38 | XMS_ITS | Patient Health Record ---
Author Organization [facility] Address [address] [place] [address] Care Team Providers Care Epidemiology Investigator Name Role Phone Camilla Mendiola Primary Care Provider Altagracia Dinero Unavailable [phone] Allergies Allergen (clinical drug ingredient) Drug/Non Drug Allergy documented on EMR Reaction Allergy Type Onset Date Status Substance with sulfonamide structure and antibacterial mechanism of action (substance) Sulfa Antibiotics Unknown Drug Allergy Active Reason For Referral No Information Medications Medication SIG (Take, Route, Frequency, Duration) Notes Start Date End Date Status buPROPion HCl ER (XL) 300 MG 1 tablet in the morning Orally Once a day; Duration: 30 days Active Pantoprazole Sodium Active Requip Active Topiramate Active Adderall XR 20 MG 1 capsule in the mor willi Orally Once a day; Duration: 30 days 08/13/2024 Active Atenolol Active Social History Sex Assigned At : Social History Observation Description Sex Assigned At Male Problems Problem Type SNOMED Code ICD Code Onset Dates Problem Status W/U Status Risk Notes Problem Attention deficit hyperactivity disorder (689198311) ADHD (attention deficit hyperactivity disorder), combined type (F90.2) Active confirmed Problem Generalized anxiety disorder (24521648) JOSHUA (generalized anxiety disorder) (F41.1) Active confirmed Problem Bipolar disorder (80855544) Bipolar 1 disorder, depressed (F31.9) Active confirmed Vital Signs Height 72 in 05/27/2024 Weight 341 lb 4 oz lbs 05/27/2024 BMI 46.28 kg/m2 05/27/2024 Encounters Encounter Location Date Provider Diagnosis [address] [place] [address] 05/27/2024 Camilla Mendiola Bipolar 1 disorder, depressed F31.9 ; ADHD (attention deficit hyperactivity disorder), combined type F90.2 and JOSHUA (generalized anxiety disorder) F41.[address] [address] 06/25/2024 Camilla Mendiola ADHD (attention deficit hyperactivity disorder), combined type F90.2 ; Bipolar 1 disorder, depressed F31.9 and JOSHUA (generalized anxiety disorder) F41.[address] [address] 08/13/2024 Camilla Mendiola ADHD (attention deficit hyperactivity disorder), combined type F90.2 and Bipolar 1 disorder, depressed F31.[address] [address] 05/28/2024 Camilla Mendiola ADHD (attention deficit hyperactivity disorder), combined type F90.[address] [address] 07/05/2024 Altagracia Dinero ADHD (attention deficit hyperactivity disorder), combined type F90.2 and Bipolar 1 disorder, depressed F31.[address] [address] 08/06/2024 Camilla Mendiola ADHD (attention deficit hyperactivity disorder), combined type F90.2 and Bipolar 1 disorder, depressed F31.9 Assessments Encounter Date Diagnosis (ICD Code) Assessment Notes Treatment Notes Treatment Clinical Notes Section Notes 05/27/2024 Bipolar 1 disorder, depressed (ICD-10 - F31.9) 05/28/2024 ADHD (attention deficit hyperactivity disorder), combined type (ICD-10 - F90.2) 06/25/2024 ADHD (attention deficit hyperactivity disorder), combined type (ICD-10 - F90.2) 05/27/2024 ADHD (attention deficit hyperactivity disorder), combined type (ICD-10 - F90.2) 06/25/2024 Bipolar 1 disorder, depressed (ICD-10 - F31.9) 07/05/2024 ADHD (attention deficit hyperactivity disorder), combined type (ICD-10 - F90.2) 08/06/2024 ADHD (attention deficit hyperactivity disorder), combined type (ICD-10 - F90.2) 08/13/2024 ADHD (attention deficit hyperactivity disorder), combined type (ICD-10 - F90.2) 08/13/2024 Bipolar 1 disorder, depressed (ICD-10 - F31.9) 08/06/2024 Bipolar 1 disorder, depressed (ICD-10 - F31.9) 07/05/2024 Bipolar 1 disorder, depressed (ICD-10 - F31.9) 05/27/2024 JOSHUA (generalized anxiety disorder) (ICD-10 - F41.1) 06/25/2024 JOSHUA (generalized anxiety disorder) (ICD-10 - F41.1) Plan Of Treatment No Information Insurance Providers Payer Name Payer Address Payer Phone Subscriber Number Group Number Insured Name Patient Relationship to Insured Coverage Start Date Coverage End Date [employer] [facility] Attn Claims Department [address] [place] [address] [phone] [id number] Rnadell West Self - patient is the insured 5 [employer] Attn Claims Department [address] [place] [address] [phone] [id number] Randell West Self - patient is the insured 5 Medical (General) History Medical History History ICD Code asthma tachycardia hemochromatosis frequent headaches anxiety depression anger issues Surgical History Surgery Date(Month/Year) Hospitalization History Reason Date(Month/Year)
--- OUTSIDE RECORDS SUMMARY | 2024-08-16 15:38 | XMS_ITS | Clinical Summary ---
Author Organization [facility] Address [address] [place] [address] Phone Care Team Providers Care Alterations Expert Name Role Phone Soco Benitezelle PAC Primary Care Pro vider AnnakymberlyAshley Karenvera PAIGE, SKIN GRADER Unavailable [phone] Allergies Active Allergy Reactions Criticality Noted Date [...] 50 MCG/ACT SuspensionIndicat ions:Environmenta l allergies 1 [place] by Nasal route every evening. Use in [...] Encounters Date Type Department Care Team Description 08/15/2024 [facility] - Primary Care - [place] [address] [place] [phone] Soco Benitez, RICK Medication Refill 06/04/2024 1:00 PM CDT [facility]medicine [facility] - Pulmonology & Sleep Medicine - [place] [address] [place] [address] Ashley Chavez, TELEMARKETING SUPERVISOR, SKIN GRADER RIKI (obstructive sleep apnea) (Primary Dx); Moderate persistent asthma without status asthmaticus without complication; Restless leg syndrome 06/04/2024 Travel from Last 3 Months Immunizations Immunization Administration [...] 09/03/2024 1:00 PM CDT [facility] [address] [place] [address] Leeroy Gonzalez PSYD [place] Discharge Disposition: Discharged to home or Selfcare 09/24/2024 2:00 PM CDT [facility] 1 [place] [address] Leeroy Gonzalez PSYD [place] Discharge Disposition: Discharged to home or Selfcare 11/22/2024 1:00 PM CDT [facility] - Pulmonology & Sleep Medicine - [place] [address] [place] [address] Ashley Watson, TELEMARKETING SUPERVISOR, SKIN GRADER [address] [facility] [address] [place] [address] Health Maintenance Due Date Last Done Comments Hepatitis C Virus (HCV) Screening 1996 Human Papillomavirus (HPV) Immunization (1 - Male 3-dose series) 04/30/2011 Hepatitis B Immunization (1 of 3 - 19+ 3-dose series) 04/30/2015 Pneumococcal Immunization Co mbined (1 of 2 - PCV) 04/30/2015 SARS-COV-2 Immunization ( - season) 2023 Influenza Immunization (#1) 2024 Td Immunization Every 10 Yea rs [...] on patient's age to complete this topic Goals Goal Patient Goal Type Associated Problems Recent Progress Patient-Stated? Author Psychological assessment Behavioral Health No Leeroy Gonzalez PSYD Note: Participate fully in psychological assessment within the next 60 days to determine presence of ADHD. Insurance MEDICAID [employer] * Guarantor: [employer] [place] Account Type Relation to Patient Date of Phone Billing Address Institutional Other [address] [place] [address] Care Teams Alterations Expert Relationship Specialty Start Date End Date Soco Benitez, [facility] [address] [place] [address] PCP - General Physician Parts Specialist 01/10/23 Ashley Watson APRN, SKIN GRADER [address] [place] [address] Nurse Practitioner Advanced Practice Nurse 02/20/23
--- OUTSIDE RECORDS SUMMARY | 2024-08-16 15:38 | XMS_ITS | Encounter Summary ---
Author Organization [facility] Address [address] [place] [address] Care Team Providers Care Comsec Manager Name Role Phone Fernando Young MD Primary Care Provider Gladys Su APRN-EQUIPMENT INSPECTOR Primary Care Provid er Yuan Young MD Unavailable [phone] Encounter Details Date Type Department Care Team (Late st Contact Info) Description 01/24/2018 [facility] Outpatient Visit [facility] - Pediatrics [address] [place] [address] Document, Scanned Social History Tobacco Use Types [...] Under Investigation 03/06/2020 03/06/2020 03/06/2020 2:59 PM WAITER/WAITRESS TAKE OUT documented as of this encounter Care Teams Comsec Manager Relationship Specialty Start Date End Date Fernando Young MD PCP - General Internal Medicine 03/16/15 04/10/19 Gladys Su APRN-EQUIPMENT INSPECTOR PCP - General Nurse Practitioner 04/11/19 Yuan Young MD Hematology 11/27/19 documented as of this encounter
--- OUTSIDE RECORDS SUMMARY | 2024-08-16 15:38 | XMS_ITS | Clinical Summary ---
Author Organization 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 [employer] Gender Identity Not on file Sexual Orientation Not on file Obstetrics History Last Filed Vital Signs Vital Sign Reading Time Taken Comments Blood Pressure 138/106 01/11/2024 7:00 PM SOFTWARE ENGINEER WEB SERVICES Pulse 58 01/11/2024 7:45 PM SOFTWARE ENGINEER WEB SERVICES Temperature 36.6 C (97.9 F) 01/11/2024 6:31 PM SOFTWARE ENGINEER WEB SERVICES Respiratory Rate 18 01/11/2024 7:45 PM SOFTWARE ENGINEER WEB SERVICES Oxygen Saturation 100% 01/11/2024 7:45 PM SOFTWARE ENGINEER WEB SERVICES Inhaled Oxygen Concentration - - Weight 158.8 kg (350 lb) 01/11/2024 6:31 PM SOFTWARE ENGINEER WEB SERVICES Height 185.4 cm (6' 1) 01/11/2024 6:31 PM SOFTWARE ENGINEER WEB SERVICES Body Mass Index 46.18 01/11/2024 6:31 PM SOFTWARE ENGINEER WEB SERVICES Plan of Treatment Health Maintenance Due Date [...] 01/14/2010 Varicella Vaccines Completed 10/03/2011, 07/11/1997 Insurance [facility] Care Teams Associate Artistic Director Relationship Specialty Start Date End Date Soco Benitez PA [address] [place] [address] PCP - General Neurosurgery 01/11/24
--- OUTSIDE RECORDS SUMMARY | 2024-08-16 15:39 | XMS_ITS | Encounter Summary ---
Author Organization [facility] Address [address] [place] [address] Phone Care Team Providers Care Solar Photovoltaic Systems Engineer Name Role Phone Soco Benitez PAC Primary Care Pro vider WalterAshley Karen PAIGE, WOOD HEEL CEMENTER Unavailable Reason for Visit * Reason Comments Medication Refill Encounter Details Date Type Department Care Team (Late st Contact Info) Description 08/04/2023 Refill [facility] - Primary Care - [place] [address] [place] [address] Soco Benitez, PAC [address] [place] [address] Medication Refill Social History Tobacco Use Types [...] Dept 02/21/23 [facility] Visit [facility] 01/10[facility]23 Office Visit Soco Benitez, RICK [facility] Showing recent visits within past 365 days and meeting all other requirements Future Appointments Date Type Provider Dept 08/22/23 Appointment Soco Benitez PAC [facility] [place] Showing future appointments within next 90 days and meeting all other requirements documented in this encounter Plan of Treatment Upcoming Encounters Date Type Department Care Team (Latest Contact Info) Description 09/03/2024 1:00 PM CDT Outpatient Clinic Visit [facility] 1 [place] [address] Leeroy Gonzalez PSYD [place] Discharge Disposition: Discharged to home or Selfcare 09/24/2024 2:00 PM CDT Outpatient Clinic Visit [facility] 1 [place] [address] Leeroy Gonzalez PSYD [place] Discharge Disposition: Discharged to home or Selfcare 11/22/2024 1:00 PM CDT Office Visit [facility] - Pulmonology & Sleep Medicine - [place] [address] [place] [address] Ashley Watson APRN, WOOD HEEL CEMENTER [address] [address] documented as of this encounter Visit Diagnoses Not on filedocumented in this encounter Additional Health Concerns Infection Onset Date Last Indicated Resolved Time Respiratory Rule-Out 04/15/2024 04/15/2024 025 8:28 AM BANDAGE WINDING MACHINE OPERATOR documented as of this encounter Care Teams Solar Photovoltaic Systems Engineer Relationship Specialty Start Date End Date Soco Benitez PAC [address] [place] [address] PCP - General Physician Start Up Specialist 01/10/23 Ashley Watson, CONVERTING OPERATOR, WOOD HEEL CEMENTER #[address] [address] Nurse Practitioner Advanced Practice Nurse 02/20/23 documented as of this encounter
--- OUTSIDE RECORDS SUMMARY | 2024-08-16 15:39 | XMS_ITS | Encounter Summary ---
Author Organization [facility] Address [address] [place] [address] Phone Care Team Providers Care Electrical Supervisor Name Role Phone Soco Benitez PAC Primary Care Pro vider WalterAshley Karen SLOISN, ASSISTANT CREDIT MANAGER Unavailable [phone] Reason for Visit * Reason Comments Medication Refill Encounter Details Date Type Department Care Team (Late st Contact Info) Description 05/21/2023 Refill [facility] - Primary Care - [place] [address] [place] [address] Soco Benitez, PAC [address] [place] [address] Medication Refill Social History Tobacco Use Types [...] 09/03/2024 1:00 PM CDT Outpatient Clinic Visit [facility] [address] [place] [phone] Leeroy Gonzalez PSYD [place] Discharge Disposition: Discharged to home or Selfcare 09/24/2024 2:00 PM CDT Outpatient Clinic Visit [facility] 1 [place] [address] Leeroy Gonzalez PSYD [place] Discharge Disposition: Discharged to home or Selfcare 11/22/2024 1:00 PM CDT Office Visit [facility] - Pulmonology & Sleep Medicine [facility] [address] [place] [address] Ashley Watson APRN, ASSISTANT CREDIT MANAGER #[address] [address] documented as of this encounter Visit Diagnoses Not on filedocumented in this encounter Additional Health Concerns Infection Onset Date Last Indicated Resolved Time Respiratory Rule-Out 04/15/2024 04/15/2024 025 8:28 AM SOCIAL MEDIA COORDINATOR documented as of this encounter Care Teams Electrical Supervisor Relationship Specialty Start Date End Date Soco Benitez, RICK [address] [place] [address] PCP - General Physician Erector Operator 01/10/23 Ashley Watson APRN, ASSISTANT CREDIT MANAGER #[address] [address] Nurse Practitioner Advanced Practice Nurse 02/20/23 documented as of this encounter
--- OUTSIDE RECORDS SUMMARY | 2024-08-16 15:39 | XMS_ITS | Clinical Summary ---
Author Organization [facility] Address [address] [place] [address] Care Team Providers Care Territory Account Manager Name Role Phone Gladys Su APRN-CARE DIRECTOR RN Primary Care Provid er Yuan Young MD Unavailable [phone] Source Comments [facility],non-owned Affiliates and Associated Physician Practices is amultiple site organization consisting of ambulatory clinics and hospital sitesin [place], [place], [place] and [place]. This disclosure is being madepursuant to the Care Everywhere program and may not contain all information available regarding this patient. Last updated 17.[facility] Allergies Active Allergy Reactions Criticality Noted [...] Comments Blood Pressure 122/88 03/06/2020 2:30 PM ASSISTANT SIGNAL MAINTAINER Pulse 88 03/06/2020 2:30 PM ASSISTANT SIGNAL MAINTAINER Temperature 36.8 C (98.3 F) 03/06/2020 2:30 PM ASSISTANT SIGNAL MAINTAINER Respiratory Rate 20 03/06/2020 2:30 PM ASSISTANT SIGNAL MAINTAINER Oxygen Saturation 97% 03/06/2020 2:30 PM ASSISTANT SIGNAL MAINTAINER Inhaled Oxygen Concentration - - Weight 149.3 kg (329 lb 3.2 oz) 03/06/2020 2:30 PM ASSISTANT SIGNAL MAINTAINER Height 185.4 cm (6' 1) 03/06/2020 2:30 PM ASSISTANT SIGNAL MAINTAINER Body Mass Index 43.43 03/06/2020 2:30 PM ASSISTANT SIGNAL MAINTAINER Plan of Treatment Health Maintenance Due Date [...] this topic Insurance [employer] Care Teams Territory Account Manager Relationship Specialty Start Date End Date Gladys Su APRN-CARE DIRECTOR RN PCP - General Nurse Practitioner 04/11/19 Yuan Young MD Hematology 11/27/19
--- OUTSIDE RECORDS SUMMARY | 2024-08-16 15:39 | XMS_ITS | Encounter Summary ---
Author Organization [facility] Address [address] [place] [address] Phone Care Team Providers Care Inorganic Chemistry Professor Name Role Phone Soco Benitez PAC Primary Care Pro vider Ashley Watson APRN, BUTCHER'S ASSISTANT Unavailable Encounter Details Date Type Department Care Team (Late st Contact Info) Description 07/17/2023 Lab Requisition [facility] Services 1 [place] [phone] Karen Bowers, GEAR MACHINIST, BUTCHER'S ASSISTANT [address] [place] [address] Encounter for pre-employment examination Social History Tobacco [...] 09/03/2024 1:00 PM CDT Outpatient Clinic Visit [facility] [address] [place] [phone] Leeroy Gonzalez PSYD [place] Discharge Disposition: Discharged to home or Selfcare 09/24/2024 2:00 PM CDT Outpatient Clinic Visit [facility] [address] [place] [address] Leeroy Gonzalez PSYD [place] Discharge Disposition: Discharged to home or Selfcare 11/22/2024 1:00 PM CDT Office Visit [facility] - Pulmonology & Sleep Medicine - [place] [address] [place] [address] Ashley Watson APRN, BUTCHER'S ASSISTANT [address]2 [facility] [address] [place] [address] documented as of this encounter Procedures Procedure [...] <0.2(L) >=1.1 AI 07/17/2023 10:48 PM CDT [facility] Blood No Phlebotomy Charged / Unknown 07/17/2023 10:00 AM CDT 07/17/2023 12:18 PM CDT Narrative [facility] - 07/17/2023 10:48 PM CDT <= 0.8 Negative. No detectable VZV IgG antibody. 0.9 - 1.0 Equivocal >=1.1 Positive Antibody testing was performed by multiplex flow immunoassay on the BioPlex platform. us Karen L Behrends GEAR MACHINIST, BUTCHER'S ASSISTANT IMMUNOLOGY ORDERABL ES Final Result Performing Organization Address City/[facility]/ZIP Co de Phone Number [facility] [address] [place] [address], [place] * RUBEOLA (MEASLES) IGG (07/17/2023 10:00 AM CDT) MEASLES AB IGG 3.7 >=1.1 AI 07/17/2023 10:48 PM CDT [facility] Blood No Phlebotomy Charged / Unknown 07/17/2023 10:00 AM CDT 07/17/2023 12:18 PM CDT Narrative [facility] - 07/17/2023 10:48 PM CDT <= 0.8 Negative. No detectable Measles IgG antibody. 0.9 - 1.0 Equivocal >=1.1 Positive Antibody testing was performed by multiplex flow immunoassay on the BioPlex platform. us Karen L Behrends GEAR MACHINIST, BUTCHER'S ASSISTANT IMMUNOLOGY ORDERABL ES Final Result Performing Organization Address City[facility]/ZIP Co de Phone Number [facility] [address] [place] [address], [place] * (ABNORMAL) RUBELLA IMMUNITY IGG (07/17/2023 10:00 AM CDT) RUBELLA IMMUNITY Nonimmune( A) Immune, Invalid 07/17/2023 10:55 PM CDT [facility] Blood No Phlebotomy Charged / Unknown 07/17/2023 10:00 AM CDT 07/17/2023 12:18 PM CDT Narrative [facility] - 07/17/2023 10:55 PM CDT Antibody testing was performed by multiplex flow immunoassay on the BioPlex platform. us Karen Edwards Behyuri GEAR MACHINIST, BUTCHER'S ASSISTANT CHEMISTRY ORDERABLE S Final Result Performing Organization Address [facility] Phone Number [facility] [address] [place] [address], [place] * MUMPS IGG (07/17/2023 10:00 AM CDT) Mumps Ab IgG 2.9 >=1.1 AI 07/17/2023 10:48 PM CDT [facility] Blood No Phlebotomy Charged / Unknown 07/17/2023 10:00 AM CDT 07/17/2023 12:18 PM CDT Narrative [facility] - 07/17/2023 10:48 PM CDT <= 0.8 Negative. No detectable Mumps IgG antibody. 0.9 - 1.0 Equivocal >=1.1 Positive Antibody testing was performed by multiplex flow immunoassay on the BioPlex platform. us Karen Bowers GEAR MACHINIST, BUTCHER'S ASSISTANT IMMUNOLOGY ORDERABL ES Final Result Performing Organization Address [facility] de Phone Number [facility] [address] [place] [address], [place] * QUANTIFERON-TB GOLD PLUS (07/17/2023 10:00 AM CDT) NIL CONTROL 0.01 <8.01 IU/mL 07/19/2023 8:48 AM CDT [facility] TB ANTIGEN 1 0.00 <0.35 IU/mL 07/19/2023 8:48 AM CDT [facility] TB ANTIGEN 2 0.00 <0.35 IU/mL 07/19/2023 8:48 AM CDT [facility] MITOGEN CONTROL 9.99 >0.49 IU/mL 07/19/19 8:48 AM CDT [facility] INTEPRETATION TB NEGATIVE NEGATIVE, NEGATIVE (TB antigen response less than 25% of internal negative control value) 07/19/2023 8:48 AM CDT [facility] Comment:No immune response t o Mycobacterium tuberculosis antigens was noted. M. tuberculosis infection unlikely. Blood No Phlebotomy Charged / Unknown 07/17/2023 10:00 AM CDT 07/17/2023 12:18 PM CDT Narrative [facility] - 07/19/2023 8:48 AM CDT A [...] ORDERABL ES Final Result Performing Organization Address [facility] Co de Phone Number [facility] [address] [place] [address], [place] * HEPATITIS B SURFACE ANTIBODY (HBSAB) (07/17/2023 10:00 AM CDT) HEPATITIS B SURFACE ANTIBODY <8.00 mIU/mL 07/17/2023 10:47 PM CDT [facility] Comment:Individual is consid ered not immune to HBV infection. Blood No Phlebotomy Charged / Unknown 07/17/2023 10:00 AM CDT 07/17/2023 12:18 PM CDT Karen Bowers APRN, CNP CHEMISTRY ORDERABLE S Final Result Performing Organization Address [facility] Co de Phone Number [facility] [address] [place] [address], [place] documented in this encounter Visit Diagnoses Diagnosis Encounter for pre-employment examination Health examination of defined subpopulation documented in this encounter Additional Health Concerns Infection Onset Date Last Indicated Resolved Time Respiratory Rule-Out 04/15/2024 04/15/2024 025 8:28 AM REFERRAL NURSE documented as of this encounter Care Teams Inorganic Chemistry Professor Relationship Specialty Start Date End Date Soco Benitez PAC [address] [place] [address] PCP - General Physician Lead Esthetician 01/10/23 Ashley Watson APRN, CNP #[address] [address] Nurse Practitioner Advanced Practice Nurse 02/20/23 documented as of this encounter
--- OUTSIDE RECORDS SUMMARY | 2024-08-16 15:39 | XMS_ITS | Encounter Summary ---
Author Organization [facility] Address [address] [place] [address] Phone Care Team Providers Care Systems Admin Name Role Phone Soco Benitez PAC Primary Care Pro vider WalterAshley Karen SOLISN, FARM EQUIPMENT MAINTENANCE SUPERVISOR Unavailable Reason for Visit * Reason Comments Medication Refill Encounter Details Date Type Department Care Team (Late st Contact Info) Description 06/12/2023 Refill [facility] - Primary Care - [place] [address] [place] [address] Soco Benitez, PAC [address] [place] [address] Medication Refill Social History Tobacco Use Types [...] [facility] [address] [place] [phone] Leeroy Gonzalez PSYD [place] Discharge Disposition: Discharged to home or Selfcare 09/24/2024 2:00 PM CDT Outpatient Clinic Visit [facility] 1 [place] [address] Leeroy Gonzalez PSYD [place] Discharge Disposition: Discharged to home or Selfcare 11/22/2024 1:00 PM CDT Office Visit [facility] - Pulmonology & [facility] [address] [place] [address] Ashley Watson APRN, FARM EQUIPMENT MAINTENANCE SUPERVISOR #[address] [address] documented as of this encounter Visit Diagnoses Not on filedocumented in this encounter Additional Health Concerns Infection Onset Date Last Indicated Resolved Time Respiratory Rule-Out 04/15/2024 04/15/2024 025 8:28 AM ANALYTICAL SCIENTIST documented as of this encounter Care Teams Systems Admin Relationship Specialty Start Date End Date Soco Benitez, RICK [address] [place] [address] PCP - General Physician Semiconductor Manufacturing Technician 01/10/23 Ashley Watson APRN, FARM EQUIPMENT MAINTENANCE SUPERVISOR #[address] [address] Nurse Practitioner Advanced Practice Nurse 02/20/23 documented as of this encounter
--- OUTSIDE RECORDS SUMMARY | 2024-08-16 15:40 | XMS_ITS ---
Author Organization Unknown Plan of Treatment Description Planned Activity Planned Timing [facility] is a provider organization who partners directly with Health Plans and provides integrated primary care, behavioral health, and social media director for an attributed population Letter encounter to patientTelephone encounter Aug 08, 2024Jul 2024 Patient Care team information Name Category Status Period Participants - - Proposed period not known -
[2024-08-16 15:46] VITALS: BP 118/86; PULSE 99; RESP 16; TEMP 36.3; O2SAT 97
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
== END 2024-08-16 16:13 | disposition home or self-care (01) ==
PROVIDERS: Emergency Provider Nurse Practitioner Family
DX: S60.221A Contusion of right hand, initial encounter (principal); S60.511A Abrasion of right hand, initial encounter; Y04.8XXA Assault by other bodily force, initial encounter
CPT/HCPCS: 73130; 99213; G0463